=== PATIENT | female | born 1995 | race Caucasian/White ===

== ENCOUNTER 2017-08-09 14:32 | Emergency (ER) | payer SELFPAY ==
[2017-08-09 14:40] VITALS: BP 108/61
[2017-08-09] MEDS ORDERED: LIDOCAINE 2% JELLY 10ML IN APPLICATOR. MM ONE (15:30)
[2017-08-09] MEDS ORDERED: LIDO30CR TP (15:44)
[2017-08-09] MEDS ORDERED: VALA1000 PO (15:44)
--- NOTE | 2017-08-09 15:44 | PHYS DOC ---
Adult General Chief Complaint Chief Complaint: rash HPI HPI Patient is a 22-year-old female who presents with a painful rash to the genital region for 1 day. Her has the same rash. She's never had it before. It' s very painful and causes her to have difficulty urinating. Review of Systems Review of Systems Constitutional: Denies fever or chills [] Current Medications Current Medications Current Medications Medications (Trade) Dose Ordered Sig/Chacorta Start Time Stop Time Status Last Admin Dose Admin Lidocaine HCl (Uro-Jet) 1 estefany 1X ONCE 08/09/17 15:30 08/09/17 15:31 UNV Physical Exam Physical Exam Constitutional: Well developed, well nourished, no acute distress, non-toxic appearance. [] HENT: Normocephalic, atraumatic, bilateral external ears normal, nose normal. [ ] Eyes: conjunctiva normal, no discharge. [] Neck: Normal range of motion, no stridor. [] : Scattered red papules with some vesicles present mostly on the left labia and on the posterior aspect of the vaginal introitus and perineum. Appearance is consistent with possible at bedtime be. It appears to be too superficial for folliculitis. Skin: Warm, dry, no erythema Extremities: No tenderness, no cyanosis, no clubbing, ROM intact, no edema. [] Neurologic: Alert and oriented X 3, normal motor function, no focal deficits noted. [] EKG EKG [] Radiology/Procedures Radiology/Procedures [] Course & Med Decision Making Course & Med Decision Making Pertinent Labs and Imaging studies reviewed. (See chart for details) 22-year-old female presents with skin lesions that are painful on the genital area, her has the same lesions. Her primary symptom is pain. With the appearance of the lesion and the predominant pain, I'm concerned about herpes. The lesions were swabbed and sent for herpes testing. We will start her on antiviral therapy today. See instructions for plan. [] Dragon Disclaimer Dragon Disclaimer This electronic medical record was generated, in whole or in part, using a voice recognition dictation system. Departure Departure: Impression: Primary Impression: Blister of genital area Additional Impression: Herpes, genital Disposition: 01 HOME, SELF-CARE Condition: STABLE Additional Instructions: As we discussed, the symptoms are concerning for herpes. We did a test today, and your doctor can call to check the results next week. We will start you on antiviral therapy in case it is herpes. Get that filled right away and get it started today. Follow-up with your doctor for recheck sometime this week. Scripts Lidocaine/Prilocaine (LIDOCAINE-PRILOCAINE CREAM) 30 Gm Cream..g. 1 ESTEFANY TP UD, #30 GM 1 Refill Prov: DARWIN SHELBY MD 08/09/17 Valacyclovir Hcl (VALACYCLOVIR) 1,000 Mg Tablet 1000 MG PO BID for herpes for 10 Days, #20 TAB Prov: DARWIN SHELBY MD 08/09/17 Problem Qualifiers DARIWN SHELBY MD Aug 09, 2017 15:44
[2017-08-12 20:08] LABS: HERPES SIMPLEX TYPE 1 Positive (Negative); HERPES SIMPLEX TYPE 2 Negative (Negative)
== END 2017-08-09 16:00 | disposition home or self-care (01) ==
LOC: ER 14:32
DX: S30.826A Blister (nonthermal) of unspecified external genital organs, female, initial encounter (principal); A60.00 Herpesviral infection of urogenital system, unspecified; X58.XXXA Exposure to other specified factors, initial encounter; Y93.89 Activity, other specified; Y99.8 Other external cause status; Y92.89 Other specified places as the place of occurrence of the external cause
CPT/HCPCS: 36415; 87529; 99283